=== PATIENT | male | born 1995 | race Caucasian/White ===

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

== ENCOUNTER 2017-06-18 12:09 | Emergency (ER) | payer OTHER, SELFPAY ==
[~2017-06-18] VITALS: Ht 170.2 cm; Wt 67.8 kg
[2017-06-18] MEDS ORDERED: ADVI200C5 PO (12:18)
[2017-06-18 14:44] VITALS: BP 110/56
--- NOTE | 2017-06-18 14:48 | REP ---
LEFT SHOULDER, THREE VIEWS: There is no evidence of an acute fracture, dislocation or intrinsic bone disease. IMPRESSION: No fracture or dislocation. Signed by Seamus Spangler MD 06/18/2017 07:18 P
== END 2017-06-18 14:45 | disposition home or self-care (01) ==
LOC: M ED 12:09
DX: S46.812A Strain of other muscles, fascia and tendons at shoulder and upper arm level, left arm, initial encounter (principal); X50.9XXA Other and unspecified overexertion or strenuous movements or postures, initial encounter; Y92.019 Unspecified place in single-family (private) house as the place of occurrence of the external cause; Y93.89 Activity, other specified; Y99.8 Other external cause status; Z87.891 Personal history of nicotine dependence

== ENCOUNTER 2018-09-27 18:55 | Emergency (ER) | payer SELFPAY ==
[~2018-09-27] VITALS: Ht 170.2 cm; Wt 65.0 kg
[~2018-09-27 18:55] MED LIST: ADVI200C5 PO
[2018-09-27 20:40] VITALS: BP 120/73
--- NOTE | 2018-09-27 20:52 | REP ---
Clinical: Right shoulder pain. Technique: Single AP view of the right shoulder. Findings: No obvious acute fracture or dislocation appreciated based on single AP view. Subacromial space appears normal. No periarticular calcifications. Surrounding soft tissues are unremarkable. Impression: Normal single view of the right shoulder. Electronically Signed by Hay Willis MD 09/27/2018 08:44 P
== END 2018-09-27 20:42 | disposition home or self-care (01) ==
LOC: M ED 18:55
DX: M75.31 Calcific tendinitis of right shoulder (principal); F12.10 Cannabis abuse, uncomplicated; Z72.0 Tobacco use

== ENCOUNTER 2018-11-20 02:06 | Emergency (ER) | payer SELFPAY ==
[~2018-11-20] VITALS: Ht 170.2 cm; Wt 63.6 kg
[2018-11-20 02:06] VITALS: BP 119/57
[2018-11-20] MEDS ORDERED: METAL LOCK LOOP XX ONE (02:20)
[2018-11-20] MEDS ORDERED: AUGM500T34 PO ×2 (02:22→02:50)
[2018-11-20] MEDS ORDERED: AUGMENTIN 875 MG TAB PO ONE (02:30)
[2018-11-20] MEDS ORDERED: CORTISPORIN OTIC SOLN 10 ML BTL AS ONE (02:30)
[2018-11-20] MEDS ORDERED: ACETAMINOPHEN 325 MG TAB PO ONE (02:45)
== END 2018-11-20 02:51 | disposition home or self-care (01) ==
LOC: M ED 02:06
DX: H60.92 Unspecified otitis externa, left ear (principal); F90.9 Attention-deficit hyperactivity disorder, unspecified type

== ENCOUNTER 2019-01-25 15:45 | Emergency (ER) | payer SELFPAY ==
[~2019-01-25] VITALS: Ht 170.2 cm; Wt 67.4 kg
[2019-01-25 15:45] VITALS: BP 137/81
[~2019-01-25 15:45] MED LIST changes: +AUGM500T34 PO
[2019-01-25] MEDS ORDERED: NAPR-837 PO (16:53)
[2019-01-25] MEDS ORDERED: NAPROXEN 250 MG TAB PO ONE (17:00)
== END 2019-01-25 17:03 | disposition home or self-care (01) ==
LOC: M ED 15:45
DX: M75.31 Calcific tendinitis of right shoulder (principal)

== ENCOUNTER 2019-10-22 00:31 | Emergency (ER) | payer SELFPAY ==
[~2019-10-22] VITALS: Ht 170.2 cm; Wt 63.6 kg
[2019-10-22 00:31] VITALS: BP 137/76
[~2019-10-22 00:31] MED LIST changes: +NAPR-837 PO
== END 2019-10-22 02:49 | disposition left against medical advice (07) ==
LOC: M ED 00:31
DX: Z53.21 Procedure and treatment not carried out due to patient leaving prior to being seen by health care provider (principal)

== ENCOUNTER → 2020-04-27 17:30 | Emergency (ER) | payer SELFPAY | END | disposition left against medical advice (07) | LOC: M ED 17:30 | DX: Z53.21 Procedure and treatment not carried out due to patient leaving prior to being seen by health care provider (principal) ==

== ENCOUNTER 2021-03-12 09:19 | Emergency (ER) | payer OTHER, SELFPAY ==
[~2021-03-12] VITALS: Ht 170.2 cm; Wt 67.6 kg
[2021-03-12 09:20] VITALS: BP 123/73
== END 2021-03-12 11:06 | disposition left against medical advice (07) ==
LOC: M ED 09:19
DX: Z53.21 Procedure and treatment not carried out due to patient leaving prior to being seen by health care provider (principal)

== ENCOUNTER 2025-06-27 00:50 | Emergency (ER) | payer OTHER, SELFPAY ==
[~2025-06-27] VITALS: Ht 167.6 cm; Wt 64.0 kg
[2025-06-27 00:53] VITALS: BP 136/89; TEMP 96.9; O2SAT 98
[2025-06-27] MEDS ORDERED: CIPR-249 PO (21:44)
== END 2025-06-27 03:31 | disposition left against medical advice (07) ==
LOC: M ED 00:50
DX: Z53.21 Procedure and treatment not carried out due to patient leaving prior to being seen by health care provider (principal)

== ENCOUNTER 2025-06-27 20:24 | Emergency (ER) | payer SELFPAY ==
[~2025-06-27] VITALS: Ht 167.6 cm; Wt 66.0 kg
[2025-06-27] MEDS: TETANUS/DIPHTH/ACEL. PERTUSSIS 0.5 ML SYR IM ONE (21:22)
[2025-06-27] MEDS ORDERED: CIPR-249 PO (21:44)
[2025-06-27] MEDS: CIPROFLOXACIN 500 MG TABLET PO ONE (21:47)
[2025-06-27 21:52] VITALS: BP 112/67; TEMP 97.1; O2SAT 99
== END 2025-06-27 22:02 | disposition home or self-care (01) ==
LOC: M ED 20:24
DX: S91.332A Puncture wound without foreign body, left foot, initial encounter (principal); Y92.019 Unspecified place in single-family (private) house as the place of occurrence of the external cause; Y93.9 Activity, unspecified; Y99.9 Unspecified external cause status; W45.0XXA Nail entering through skin, initial encounter; Z79.2 Long term (current) use of antibiotics; Z23 Encounter for immunization